=== PATIENT | male | born 1975 | race Caucasian/White ===

== ENCOUNTER 2021-06-09 14:07 | Emergency (ER) | payer OTHER ==
[~2021-06-09] VITALS: Ht 193 cm; Wt 97.5 kg
[~2021-06-09 14:07] MED LIST: NORCO 5-325 TA1 EACH PO
[2021-06-09] MEDS ORDERED: XANAX 0.25 MG0.25 MG PO (16:17)
[2021-06-09] MEDS ORDERED: MEDROLDOSEPACK PO (16:17)
[2021-06-09 16:30] VITALS: BP 124/72
== END 2021-06-09 16:31 | disposition home or self-care (01) ==
LOC: M.ERS 14:07
DX: M54.50 Low back pain, unspecified (principal); R20.0 Anesthesia of skin; R20.2 Paresthesia of skin; Z90.49 Acquired absence of other specified parts of digestive tract; Z79.899 Other long term (current) drug therapy